=== PATIENT | female | born 1950 | race Two or more races ===

== ENCOUNTER 2018-04-04 14:44 | Inpatient (IN) | payer MEDICARE, OTHER ==
[~2018-04-04] VITALS: Ht 160 cm; Wt 86.2 kg
--- NOTE | 2018-04-04 14:48 | NUR ---
PT BIBRA TO ER BED 11. C/O L HIP AND L KNEE PAIN S/P MECHANICAL SLIP AND FALL 30 MINS PRIOR TO ADMISSION. PT DENIES HEAD TRAUMA. WAS GIVEN MORPHINE AND ZOFRAN ADMITTING COORDINATOR. PLACED ON MONITOR. VSS AWAITING MD PULIDO.
--- NOTE | 2018-04-04 14:49 | NUR ---
DR CARTAGENA AT BEDSIDE FOR EVAL.
--- NOTE | 2018-04-04 16:34 | NUR ---
CALLED [employer] SUPERVISOR WAS PAGED.
[2018-04-04 16:42] LABS: BASOPHILS # (AUTO) 0.1 /CMM (0.0-0.2); BASOPHILS % (AUTO) 0.6 % (0.0-2.0); EOSINOPHILS % (AUTO) 0.7 % (0.0-6.0); HEMATOCRIT 40 % (33-45); HEMOGLOBIN 13.5 g/dL (11.5-14.8); LYMPHOCYTES # (AUTO) 1.7 /CMM (0.8-4.8); LYMPHOCYTES % (AUTO) 15.1 % (20.0-44.0); MEAN CORPUSCULAR HEMOGLOBIN 29 PG (26.0-33.0); MEAN CORPUSCULAR HGB CONC 34 g/dl (31.0-36.0); MEAN CORPUSCULAR VOLUME 87 fL (82-100); MONOCYTES # (AUTO) 0.4 /CMM (0.1-1.30); MONOCYTES % (AUTO) 3.7 % (2.0-12.0); NEUTROPHILS # (AUTO) 9.1 /CMM (1.8-8.9); NEUTROPHILS % (AUTO) 79.9 % (43.0-81.0); PLATELET COUNT (AUTO) 359 /CMM (150-450); RED BLOOD CELL COUNT(AUTO) 4.65 MIL/uL (4.0-5.2); WHITE BLOOD COUNT (AUTO) 11.4 K/uL (4.3-11.0)
[2018-04-04] MEDS ORDERED: IV NS 0.9% 1,000 ML IV PRN (16:43)
--- NOTE | 2018-04-04 16:43 | NUR ---
CALLED [facility], CHART CLERK WAS PAGED.
[2018-04-04 16:51] LABS: CALCIUM, SERUM 9.2 mg/dL (8.5-10.1); CREATININE 0.7 mg/dL (0.6-1.3); POTASSIUM 3.9 mmol/L (3.5-5.1)
[2018-04-04 16:59] LABS: INR 0.9 (0.85-1.15)
[2018-04-04] MEDS ORDERED: ACETAMINOPHEN 325 MG TABLET PO PRN (17:00)
[2018-04-04] MEDS ORDERED: ZOLPIDEM TARTRATE 5 MG TABLET PO PRN (17:00)
[2018-04-04] MEDS ORDERED: Z GUARD REMEDY 2 OZ OINT TP PRN (17:00)
[2018-04-04] MEDS ORDERED: MAGNESIUM HYDROXIDE 30 ML UDC PO PRN (17:00)
[2018-04-04] MEDS ORDERED: ONDANSETRON HCL/PF 4 MG/2 ML VIAL IVP PRN (17:00)
[2018-04-04] MEDS ORDERED: MAG HYDROX/AL HYDROX/SIMETH 30 ML UDC PO PRN (17:00)
[2018-04-04] MEDS ORDERED: ATOR40TA PO (17:15)
[2018-04-04] MEDS ORDERED: METF500T6 PO (17:15)
[2018-04-04] MEDS ORDERED: GEMF600T3 PO (17:15)
[2018-04-04] MEDS ORDERED: LOSA1TAB42 PO (17:15)
[2018-04-04] MEDS ORDERED: RANI300C PO (17:15)
[2018-04-04] MEDS ORDERED: ESCI10TA PO (17:15)
[2018-04-04] MEDS ORDERED: METO-356 PO (17:15)
[2018-04-04] MEDS ORDERED: LEVO88TA5 PO (17:15)
--- NOTE | 2018-04-04 17:22 | NUR ---
REPORT GIVEN TO NANCY MERRITT. PT AWAITING TRANSFER TO FLOOR.
[2018-04-04] MEDS: MORPHINE SULFATE INJ 2 MG/ML DISP.SYRIN IV PRN (18:16)
--- NOTE | 2018-04-04 18:40 | NUR ---
MS RN Notes Received patient form ER via [facility] with the diagnosis S/P fall left hip fracture under the service of Dr. Mckeon. Patient is awake, A/O x4. Persian speaking but can speak/understand basic Turkmen. With patent UV cannula on R hand G#20. Unable to do skin assessment at this time due to patient in severe pain. Patient place on bed comfortably, V/S checked, stable within acceptable range. Started on IVF NS @ 75 ml/hr as ordered. Administered Morphine for pain as ordered. All needs attended and met. Plan of care discussed family at bedside. Kept clean, dry and comfortable. Monitored accordingly. Endorsed to the next shift.
[2018-04-04 19:47] VITALS: BP 112/60
[2018-04-04 20:00] VITALS: BP 112/60
--- NOTE | 2018-04-04 20:38 | NUR ---
2000 RECIEVED ALERT AND ORIENTATED X3 AWARE SHE IS TO BE SCHEDULED FOR SURGERY TO REPAIR HER LEFT HIP TOMORROW. DAUGHTER AT THE BEDSIDE. PEDAL PULESES MARLENE FEET STRONG MOVEMENT PRESENT. AT THIS TIME SHE STATED SHE IS COMFORTABLE . NOTED SHE NODS OFF TO SLEEP. SPEECH CLEAR.
[2018-04-04] MEDS: BLOOD SUGAR DIAGNOSTIC 1 EACH STRIP IN SCH (21:32)
[2018-04-05] VITALS (11 sets, daily range): BP systolic 110–152; BP diastolic 67–85
[2018-04-05] MEDS: BLOOD SUGAR DIAGNOSTIC 1 EACH STRIP IN SCH ×4 (06:20→22:02)
[2018-04-05 06:29] LABS: BASOPHILS % (AUTO) 0.4 % (0.0-2.0); EOSINOPHILS % (AUTO) 2.6 % (0.0-6.0); HEMATOCRIT 37 % (33-45); HEMOGLOBIN 12.8 g/dL (11.5-14.8); LYMPHOCYTES # (AUTO) 1.9 /CMM (0.8-4.8); LYMPHOCYTES % (AUTO) 21.1 % (20.0-44.0); MEAN CORPUSCULAR HEMOGLOBIN 30 PG (26.0-33.0); MEAN CORPUSCULAR HGB CONC 34 g/dl (31.0-36.0); MEAN CORPUSCULAR VOLUME 89 fL (82-100); MONOCYTES # (AUTO) 0.5 /CMM (0.1-1.30); MONOCYTES % (AUTO) 5.6 % (2.0-12.0); NEUTROPHILS # (AUTO) 6.4 /CMM (1.8-8.9); NEUTROPHILS % (AUTO) 70.3 % (43.0-81.0); PLATELET COUNT (AUTO) 294 /CMM (150-450); RDW COEFFICIENT OF VARIATION 12.7 (11.5-15.0); RED BLOOD CELL COUNT(AUTO) 4.22 MIL/uL (4.0-5.2); WHITE BLOOD COUNT (AUTO) 9.1 K/uL (4.3-11.0)
--- NOTE | 2018-04-05 06:47 | NUR ---
ending notes; ASKED X3 IF NEEDED PAIN MEDICATION, STATED IF SHE DIDN'T MOVE IT DIDN'T HURT. DTR AT THE BEDSIDE THROUGH THE NIGHT/ VOIDED X1 ON THE BEDPAN, WILL ASK THE MD FOR A MCDONNELL TODAY..MUCH NEEDED. PPP MARLENE FEET
[2018-04-05 06:50] LABS: CREATININE 0.8 mg/dL (0.6-1.3); MAGNESIUM 1.8 mg/dL (1.8-2.4); PHOSPHORUS 3.7 mg/dL (2.5-4.9); POTASSIUM 3.8 mmol/L (3.5-5.1)
[2018-04-05 07:00] LABS: CALCIUM, SERUM 8.5 mg/dL (8.5-10.1)
[2018-04-05] MEDS: LEVOTHYROXINE SODIUM 88 MCG TABLET PO SCH (07:30)
--- NOTE | 2018-04-05 07:35 | NUR ---
RN OPENING NOTES RECEIVED PT. IN BED A&OX4. BREATHING UNLABORED, AND EVENLY ON ROOM AIR. PT C/O PAIN IN LEFT HIP, PT. WAS OFFERED PAIN MEDICATION. PT.'S DAUGHTER AT BEDSIDE REQUESTED FOR A MCDONNELL CATHETER INSERTION FOR HER MOTHER DUE TO PT. HAVING DIFFICULTY VOIDING. IV FLUIDS ARE RUNNING AT 75 ML/HR. BED IS IN LOWEST, AND LOCKED POSITION. 2 SIDE RAILS UP, AND INSTRUCTED PT. TO USE CALL LIGHT FOR ASSISTANCE.
[2018-04-05] MEDS: MORPHINE SULFATE INJ 2 MG/ML DISP.SYRIN IV PRN (08:15)
[2018-04-05] MEDS: METOPROLOL SUCCINATE 25 MG TAB.SR.24H PO SCH (09:00)
[2018-04-05] MEDS: ESCITALOPRAM OXALATE (10 MG) 10 MG TABLET PO SCH (09:00)
[2018-04-05] MEDS: FAMOTIDINE (20 MG) 20 MG TABLET PO SCH (09:00)
[2018-04-05] MEDS ORDERED: IV D5/ 0.9% NACL 1,000 ML IV PRN (09:26)
[2018-04-05] MEDS ORDERED: METFORMIN 500 MG TABLET PO SCH (09:30)
[2018-04-05] MEDS: METFORMIN 500 MG TABLET PO SCH ×2 (09:30→17:00)
--- NOTE | 2018-04-05 09:52 | NUR ---
MCDONNELL CATHETER WAS INSERTED WITHOUT COMPLICATIONS. PT. TOLERATED PROCEDURE WELL. PT. HAD 600 CC OF CLEAR, AND YELLOW URINE OUTPUT.
[2018-04-05] MEDS: HYDROCHLOROTHIAZIDE 25 MG TABLET PO SCH (10:42)
[2018-04-05] MEDS: LOSARTAN POTASSIUM 50 MG TABLET PO SCH (11:00)
[2018-04-05 13:53] LABS: THYROID STIMULATING HORMONE 1.668 uIU/mL (0.358-3.74)
[2018-04-05 15:47] LABS: BILIRUBIN,URINE NEGATIVE (NEGATIVE); BLOOD, URINE NEGATIVE Ery/uL (NEGATIVE); COLOR,URINE YELLOW (YELLOW); KETONES,URINE NEGATIVE (NEGATIVE); LEUKOCYTE ESTERASE ,URINE NEGATIVE (NEGATIVE); NITRITE, URINE NEGATIVE (NEGATIVE); PROTEIN,URINE NEGATIVE (NEGATIVE); UGLUCOSE NEGATIVE (NEGATIVE); UROBILINOGEN,URINE 0.2 EU/dL (0.2)
[2018-04-05 15:53] LABS: APPEARANCE,URINE CLEAR (CLEAR)
[2018-04-05] MEDS: GEMFIBROZIL 600 MG TABLET PO SCH (17:00)
--- NOTE | 2018-04-05 18:07 | NUR ---
PT. LEFT ROOM FOR LEFT HIP SURGERY.
--- NOTE | 2018-04-05 19:00 | NUR ---
RN CLOSING NOTES ENDORSED TO NURSE PT. LEFT FOR SURGERY. ALL CONSENTS SIGNED AND PLACED IN CHART. PT. HAD MCDONNELL CATHETER WITH >1000 CC OUTPUT OF CLEAR, AND YELLOW URINE. PT. HAD LEFT FOR SURGERY IN STABLE CONDITION.
[2018-04-05] MEDS ORDERED: BUPIVACAINE MPF 0.75% 30 ML VIAL ONE (19:04)
[2018-04-05] MEDS ORDERED: BACITRACIN 50000 UNITS/VIAL ONE (19:04)
[2018-04-05] MEDS ORDERED: HYDROMORPHONE INJ 2 MG/ML DISP.SYRIN ONE ×2 (19:12→20:21)
[2018-04-05] MEDS ORDERED: FENTANYL PF 100MCG/2ML AMPUL ONE (20:21)
[2018-04-05] MEDS: ATORVASTATIN 40 MG TABLET PO SCH (21:22)
[2018-04-05] MEDS ORDERED: IV NS 0.9% 1,000 ML BAG IV PRN (22:00)
[2018-04-05] MEDS ORDERED: IV NS 0.9% 1,000 ML IV PRN (22:30)
[2018-04-06] VITALS (12 sets, daily range): BP systolic 102–174; BP diastolic 50–81
[2018-04-06] MEDS: ANCEF 1 GM/50 ML D5W IV SCH ×6 (00:48→17:08)
[2018-04-06] MEDS: MORPHINE SULFATE INJ 2 MG/ML DISP.SYRIN IV PRN ×2 (02:24→06:23)
[2018-04-06] MEDS: BLOOD SUGAR DIAGNOSTIC 1 EACH STRIP IN SCH ×4 (06:21→21:20)
[2018-04-06 06:23] LABS: BASOPHILS % (AUTO) 0.2 % (0.0-2.0); HEMATOCRIT 35 % (33-45); HEMOGLOBIN 11.9 g/dL (11.5-14.8); LYMPHOCYTES # (AUTO) 0.7 /CMM (0.8-4.8); LYMPHOCYTES % (AUTO) 7.3 % (20.0-44.0); MEAN CORPUSCULAR HEMOGLOBIN 31 PG (26.0-33.0); MEAN CORPUSCULAR HGB CONC 34 g/dl (31.0-36.0); MEAN CORPUSCULAR VOLUME 89 fL (82-100); MONOCYTES # (AUTO) 0.5 /CMM (0.1-1.30); MONOCYTES % (AUTO) 4.7 % (2.0-12.0); NEUTROPHILS # (AUTO) 8.9 /CMM (1.8-8.9); NEUTROPHILS % (AUTO) 87.8 % (43.0-81.0); PLATELET COUNT (AUTO) 289 /CMM (150-450); RDW COEFFICIENT OF VARIATION 12.7 (11.5-15.0); RED BLOOD CELL COUNT(AUTO) 3.88 MIL/uL (4.0-5.2); WHITE BLOOD COUNT (AUTO) 10.1 K/uL (4.3-11.0)
--- NOTE | 2018-04-06 06:31 | NUR ---
ENDING NOTES: COOPERATIVE ABOUT BEING REPOSITIONED THRU THE NIGHT. MEDICATED X2 FOR LEFT HIP PAIN WITH MORPHINE 2 MG AND EFFECTIVE. DAUGHTER AT THE BEDSIDE THRU THE NIGHT. THIS AM MS. DEMIRTCHAIN AWAKE AND ALERT PPP MARLENE FEET AND MOVEMENT PRESENY ANDFEET WARM TO TOUCH BLOOD SUGAR THIS AM 154
[2018-04-06 06:50] LABS: ALBUMIN 3.2 g/dL (3.4-5.0); BILIRUBIN,TOTAL 0.5 mg/dL (0.2-1.0); CALCIUM, SERUM 7.8 mg/dL (8.5-10.1); CREATININE 0.7 mg/dL (0.6-1.3); MAGNESIUM 1.8 mg/dL (1.8-2.4); PHOSPHORUS 3.3 mg/dL (2.5-4.9); POTASSIUM 3.8 mmol/L (3.5-5.1); TOTAL PROTEIN, SERUM 6.8 g/dL (6.4-8.2)
[2018-04-06] MEDS: ESCITALOPRAM OXALATE (10 MG) 10 MG TABLET PO SCH (08:08)
[2018-04-06] MEDS: LEVOTHYROXINE SODIUM 88 MCG TABLET PO SCH (08:09)
[2018-04-06] MEDS: FAMOTIDINE (20 MG) 20 MG TABLET PO SCH (08:09)
[2018-04-06] MEDS: METFORMIN 500 MG TABLET PO SCH ×2 (08:09→17:08)
[2018-04-06] MEDS: METOPROLOL SUCCINATE 25 MG TAB.SR.24H PO SCH (08:14)
[2018-04-06] MEDS: LOSARTAN POTASSIUM 50 MG TABLET PO SCH (08:14)
[2018-04-06] MEDS: HYDROCHLOROTHIAZIDE 25 MG TABLET PO SCH (08:15)
[2018-04-06] MEDS: HYDROCODONE/APAP 5/325MG 1 EACH TABLET PO PRN ×3 (08:17→21:21)
[2018-04-06] MEDS: GEMFIBROZIL 600 MG TABLET PO SCH ×2 (08:21→17:08)
--- NOTE | 2018-04-06 11:17 | NUR ---
MS MERRITT INITIAL NOTES Received patient on semi Bates's position with patent IV infusing well attached to R hand. With complaint of pain 8/10 on the L hip. With patent indwelling FC attached to urine bag with clear yellow urine. On WBAT. Advanced to soft diet, with fair appetite. Kept clean and dry. Medication administered for pain. Will monitor accordingly.
--- NOTE | 2018-04-06 18:48 | NUR ---
MS RN CLOSING NOTES Patient asleep on bed, no discomfort at this time. With patent SL @ R hand. With L hip dressing clean, dry and intact. No new unusualities notes. On soft diet, with good appetite. All due meds given, tolerated well with no ASE noted. Kept clean, dry and comfortable. Endorsed to the next shift.
--- NOTE | 2018-04-06 19:20 | NUR ---
MS RN OPENING NOTE Patient was seen lying in semi-Bates's position in bed AAOx4, breathing on RA with no SOB, and no signs of acute distress. Patient is with left hip fracture s/p surgical repair on 04/05. Dressing covering the incision is clean, dry, and intact. Patient currently reports 4/10 pain and does not need additional medication/measures for pain relief. SL IV in the right hand is intact and patent. Bed is low/locked, two side rails up, and call sloan within reach. Family is at the bedside to assist with translation as needed. Patient has no immediate needs or concerns at this time. Will continue to monitor.
[2018-04-06] MEDS: ATORVASTATIN 40 MG TABLET PO SCH (21:20)
[2018-04-06] MEDS: ENOXAPARIN SODIUM 40 MG/0.4 ML DISP.SYRIN SQ SCH (21:21)
--- NOTE | 2018-04-06 21:30 | NUR ---
MS RN NOTE - Hancock, Maalox Patient requested Hancock for pain relief, reporting 7/10 left hip pain (s/p left hip surgery). PO Hancock 5/325mg was administered as ordered. Patient also reported abdominal gas and bloating and requested medication for relief. 30 ml of Maalox was administered per orders.
[2018-04-07] MEDS: BLOOD SUGAR DIAGNOSTIC 1 EACH STRIP IN SCH ×4 (06:30→21:03)
[2018-04-07] MEDS: LEVOTHYROXINE SODIUM 88 MCG TABLET PO SCH (06:30)
[2018-04-07 07:10] LABS: BASOPHILS % (AUTO) 0.4 % (0.0-2.0); EOSINOPHILS % (AUTO) 2.2 % (0.0-6.0); HEMATOCRIT 35 % (33-45); HEMOGLOBIN 11.7 g/dL (11.5-14.8); LYMPHOCYTES % (AUTO) 22.5 % (20.0-44.0); MEAN CORPUSCULAR HEMOGLOBIN 31 PG (26.0-33.0); MEAN CORPUSCULAR HGB CONC 34 g/dl (31.0-36.0); MEAN CORPUSCULAR VOLUME 89 fL (82-100); MONOCYTES # (AUTO) 0.7 /CMM (0.1-1.30); MONOCYTES % (AUTO) 7.4 % (2.0-12.0); NEUTROPHILS # (AUTO) 6.1 /CMM (1.8-8.9); NEUTROPHILS % (AUTO) 67.5 % (43.0-81.0); PLATELET COUNT (AUTO) 289 /CMM (150-450); RDW COEFFICIENT OF VARIATION 12.8 (11.5-15.0); RED BLOOD CELL COUNT(AUTO) 3.85 MIL/uL (4.0-5.2)
--- NOTE | 2018-04-07 07:44 | NUR ---
MS RN CLOSING NOTE Patient was seen lying in bed AAOx4, breathing on RA with no SOB, and no signs of acute distress. Dressing covering left hip incision remains clean, dry, and intact. Patient slept well overnight with no complications and remains in stable condition. Patient reports pain at 3/10. All needs addressed this shift. Bed is low/locked with call in reach. Patient care endorsed to day shift nurse.
[2018-04-07 07:46] LABS: CALCIUM, SERUM 8.4 mg/dL (8.5-10.1); CREATININE 0.7 mg/dL (0.6-1.3); PHOSPHORUS 2.8 mg/dL (2.5-4.9); POTASSIUM 3.6 mmol/L (3.5-5.1)
--- NOTE | 2018-04-07 07:48 | NUR ---
MS RN OPENING NOTE RECEIVED PATIENT IN BED, SLEEPING, EASILY AROUSED WITH VERBAL STIMULI, ORIENTED X4. ON ROOM AIR, TOLERATING WELL. IN NO APPARENT DISTRESS OR DISCOMFORT AT THIS TIME. RESPIRATIONS EVEN AND UNLABORED. REPORTS PAIN AT TOLERABLE LEVEL FOR NOW DOES NOT WANT PAIN MEDICATION. DENIES SOB. PATIENT IS ABLE TO COMMUNICATE NEEDS. PATIENT WITH MCDONNELL CATH IN PLACE, DRAINING CLEAR YELLOW URINE. RIGHT HAND 20G IVC, SL. PATENT AND INTACT. SURGICAL DRESSING INTACT. ALL NEEDS ATTENDED, KEPT CLEAN AND COMFORTABLE. SAFETY MEASURES IN PLACE, FAMILY AT BEDSIDE, BED IN LOW LOCKED POSITION, SIDE RAILS UP X2, CALL LIGHT WITHIN EASY REACH. WILL CONTINUE TO MONITOR.
[2018-04-07 08:00] VITALS: BP 124/58
[2018-04-07] MEDS: LOSARTAN POTASSIUM 50 MG TABLET PO SCH (09:00)
[2018-04-07] MEDS: HYDROCHLOROTHIAZIDE 25 MG TABLET PO SCH (09:16)
[2018-04-07] MEDS: GEMFIBROZIL 600 MG TABLET PO SCH ×2 (09:17→16:31)
[2018-04-07] MEDS: ESCITALOPRAM OXALATE (10 MG) 10 MG TABLET PO SCH (09:17)
[2018-04-07] MEDS: METFORMIN 500 MG TABLET PO SCH ×2 (09:18→16:31)
[2018-04-07] MEDS: HYDROCODONE/APAP 5/325MG 1 EACH TABLET PO PRN ×2 (09:18→16:01)
[2018-04-07] MEDS: METOPROLOL SUCCINATE 25 MG TAB.SR.24H PO SCH (09:21)
--- NOTE | 2018-04-07 09:30 | NUR ---
AM BP MEDICATION COZAAR WAS HELD PATIENT'S BP WAS WNL AND SHE WAS ALREADY GETTING TWO OTHER BP MEDICATIONS. PATIENT NOTIFIED AND AGREED TO HOLD
[2018-04-07] MEDS: FAMOTIDINE (20 MG) 20 MG TABLET PO SCH (09:32)
--- NOTE | 2018-04-07 11:30 | NUR ---
RECEIVED REPORT FROM PHYSICAL THERAPIST THAT PATIENT WAS NOT ABLE TO WALK. SHE ONLY SAT ON THE EDGE OF THE BED. AND STOOD UP BUT DID NOT WANT TO WALK DUE TO PAIN. PAIN MEDICATION WAS ADMINISTERED ABOUT AN HOUR PRIOR TO THERAPY AND PATIENT REPORTED IT WAS EFFECTIVE AT THE TIME OF REASSESSMENT. WILL CONTINUE TO MONITOR AND REINFORCE EDUCATION.
--- NOTE | 2018-04-07 13:00 | NUR ---
PATIENT REPORTS HAVING POOR APPETITE AND REFUSES TO EAT ANYTHING. ENCOURAGED TO EAT BY THE NURSE AND THE FAMILY. WILL CONTINUE TO MONITOR.
--- NOTE | 2018-04-07 15:00 | NUR ---
UNABLE TO CHANGE PATIENT'S BEDSHEETS DUE TO PATIENT NOT BEING ABLE TO TURN AND MOVE AROUND. STATES SHE HAS EXCRUCIATING PAIN WITH MOVEMENT. SUGGESTED TO GIVE HER PAIN MEDICATION TO CONTROLL THE PAIN AND REATTEMPT LATER. PATIENT AGREED, FAMILY AGREED.
[2018-04-07 16:00] VITALS: BP 123/70
--- NOTE | 2018-04-07 18:00 | NUR ---
PATIENT IS NON COMPLIANT WITH TREATMENT PLAN. DOES NOT WANT TO EAT DUE TO POOR APPETITE, OR MOVE AROUND DUE TO PAIN. OFFERED TO GIVE PAIN MEDICATION. PATIENT STATED SHE DOES NOT WANT TO TAKE PAIN MEDICATION SHE IS NOT IN PLAIN WHEN LAYING STILL. REINFORCED EDUCATION REGARDING THE IMPORTANCE OF AMBULATING AND PHYSICAL ACTIVITY POST SURGERY. ENCOURAGED TO ALLOW TO CONTROL THE PAIN IN ORDER FOR HER TO BE ABLE TO AMBULATE. RISKS AND BENEFITS WAS EXPLAINED TO THE PATIENT. WILL FOLLOW UP AT A LATER TIME.
--- NOTE | 2018-04-07 19:00 | NUR ---
MS RN OPENING NOTE RECEIVE PATIENT AWAKE IN BED, A/O X 4, NO SOB OR DISTRESS NOTED, CALL LIGHT WITHIN REACH. SAFETY MEASURES IMPLEMENTED. WILL CONTINUE TO MONITOR THROUGHOUT SHIFT.
--- NOTE | 2018-04-07 19:25 | NUR ---
MS RN CLOSING NOTE PATIENT IN BED, ALERT ORIENTED X4. ON ROOM AIR, TOLERATING WELL. IN NO APPARENT DISTRESS OR DISCOMFORT AT THIS TIME, RESPIRATIONS EVEN AND UNLABORED. REPORTS PAIN AT TOLERABLE LEVEL, REFUSES PAIN MEDICATION DENIES SOB. PATIENT IS ABLE TO COMMUNICATE NEEDS. PATIENT WITH MCDONNELL CATH IN PLACE, DRAINING CLEAR RACHEL COLOR URINE. RIGHT HAND 20G IVC, SL. PATENT AND INTACT. SURGICAL DRESSING INTACT. ALL NEEDS ATTENDED, KEPT CLEAN AND COMFORTABLE. SAFETY MEASURES IN PLACE, FAMILY AT BEDSIDE, BED IN LOW LOCKED POSITION, SIDE RAILS UP X2, CALL LIGHT WITHIN EASY REACH. WILL ENDORSE TO PM NURSE FOR EUNICE.
[2018-04-07 20:00] VITALS: BP 134/66
[2018-04-07] MEDS: ATORVASTATIN 40 MG TABLET PO SCH (20:48)
[2018-04-07] MEDS: ENOXAPARIN SODIUM 40 MG/0.4 ML DISP.SYRIN SQ SCH (20:48)
[2018-04-07] MEDS: MORPHINE SULFATE INJ 2 MG/ML DISP.SYRIN IV PRN (20:49)
[2018-04-08] MEDS: BLOOD SUGAR DIAGNOSTIC 1 EACH STRIP IN SCH ×3 (06:00→16:11)
--- NOTE | 2018-04-08 06:17 | NUR ---
MS RN CLOSING NOTES PT COMFORTABLY ASLEEP AND EASILY AWAKEN, STABLE CONDITION. RESPIRATION EVEN AND UNLABORED. 02 SAT 98%R.A, KEPT CLEAN AND DRY AND COMFORTABLE, ALL NURSING CARE RENDERED. NEEDS ATTENDED AND ANTICIPATED,NOT IN DISTRESS, NO FACIAL GRIMACING NOTED. ON LOW BED AT ALL TIMES TO ENSURE SAFETY. SAFE HAZARD FREE ENVIRONMENT PROVIDED. CALL LIGHT WITHIN EASY TO REACH. WILL ENDORSE NEXT SHIFT CONTINUITY OF CARE.
[2018-04-08 07:31] LABS: CALCIUM, SERUM 8.4 mg/dL (8.5-10.1); CREATININE 0.6 mg/dL (0.6-1.3); MAGNESIUM 1.9 mg/dL (1.8-2.4); POTASSIUM 3.4 mmol/L (3.5-5.1)
[2018-04-08 08:00] VITALS: BP 141/77
--- NOTE | 2018-04-08 08:00 | NUR ---
RN NOTES RECEIVED PATIENT IN THE BED A/O X3, [place] SPEAKER FEMALE, HAS NO ACUTE RESPIRATORY DISTRESS, REFUSED PAIN AT THIS TIME, ONLY PAINFUL WHEN MOVING LEFT LEG, BUT TOLERABLE, REFUSED PAIN MEDICATION THIS TIME. PATIENT HAS IV/ACCESS ON RIGHT HAND INTACT, F/ C DRAIN LIGHT YELLOW OUTPUT, ASSIST TURN AND REPOSTION Q 2 HR. SCHEDULED MEDICATION ADMINISTERED, V/S STABLE. ENCOURAGED TO INCREASE FLUID INTAKE, DAUGHTER NEXT TO THE BED . CALL LIGHT WITHIN TO REACH, SAFETY PRECAUTION MAINTAINED ALL THE TIME.
[2018-04-08] MEDS: METFORMIN 500 MG TABLET PO SCH ×2 (08:13→16:09)
[2018-04-08] MEDS: LEVOTHYROXINE SODIUM 88 MCG TABLET PO SCH (08:13)
[2018-04-08] MEDS: FAMOTIDINE (20 MG) 20 MG TABLET PO SCH (08:13)
[2018-04-08] MEDS: ESCITALOPRAM OXALATE (10 MG) 10 MG TABLET PO SCH ×2 (08:16→08:27)
[2018-04-08] MEDS: LOSARTAN POTASSIUM 50 MG TABLET PO SCH (08:16)
[2018-04-08] MEDS: METOPROLOL SUCCINATE 25 MG TAB.SR.24H PO SCH (08:17)
[2018-04-08] MEDS: HYDROCHLOROTHIAZIDE 25 MG TABLET PO SCH (08:18)
[2018-04-08] MEDS: ENOXAPARIN SODIUM 40 MG/0.4 ML DISP.SYRIN SQ SCH (08:24)
[2018-04-08] MEDS: GEMFIBROZIL 600 MG TABLET PO SCH ×2 (08:33→16:11)
[2018-04-08] MEDS ORDERED: ENOX40DI SQ (08:58)
[2018-04-08] MEDS ORDERED: MAGN400O6 PO (08:58)
[2018-04-08] MEDS ORDERED: HYDR-3972 PO (08:58)
[2018-04-08] MEDS ORDERED: MORPHINE SULFATE INJ 2 MG/ML DISP.SYRIN IV PRN (09:00)
[2018-04-08] MEDS ORDERED: HYDROCODONE/APAP 10/325MG 1 EA TABLET PO PRN (09:00)
[2018-04-08] MEDS ORDERED: ENOXAPARIN SODIUM 40 MG/0.4 ML DISP.SYRIN SQ SCH (09:30)
[2018-04-08] MEDS ORDERED: POTASSIUM CHLORIDE 20 MEQ TAB.PRT.SR PO ONE (09:30)
--- NOTE | 2018-04-08 10:18 | NUR ---
RN NOTES ADMINISTERED MORPHINE SULFATE 2 MG/ML IV PUSH FOR LEFT HIP PAIN 03/15 PER PATIENT REQUEST. V/S TAKEN BP-141/77, P-81, CONTINUED MONITORING.
--- NOTE | 2018-04-08 11:00 | NUR ---
RN NOTES REMOVED F/C PER DR ZEE ORDER, ENCOURAGED PATIENT IN INCREASE FLUID INTAKE, CONTINUED MONITORING.
--- NOTE | 2018-04-08 11:38 | NUR ---
RN NOTES PATIENT GOING TO D/C ACUTE REHAB. MEDICATION WERE ADMINISTERED FOR PAIN EFFECTIVE, PATIENT WITH PT AT THIS TIME.
[2018-04-08 16:00] VITALS: BP 136/71
--- NOTE | 2018-04-08 17:32 | NUR ---
RN NOTES ADMINISTERED NARCO 10/325 MG PO PRN FOR LEFT HIP PAIN 03/15 PER PATIENT REQUEST, V/S TAKEN BP-136/71, P-95, ENCOURAGED TO INCREASE FLUID INTAKE. CONTINUED MONITORING.
--- NOTE | 2018-04-08 18:34 | NUR ---
DISCHARGE NOTES PATIENT DISCHARGE AT THIS TIME GOING [facility]. PATIENT A/O X4, MEDICATION WERE ADMINISTERED FOR PAIN EFFECTIVE, V/S STABLE. MED RECONCILIATION AND DISCHARGE ORDER REVIEWED AND EXPLAINED TO PATIENT AND DAUGHTER. REPORT GIVEN ARU SHAINA SALINAS. RN VERBALIZED UNDERSTANDING. BELONGING WITH THE PATIENT. PATIENT ADVERTISING ACCOUNT EXECUTIVE BY AMBULANCE. PATIENT WILL FOLLOW ARU SEAT COVER CUTTER.
== END 2018-04-08 18:28 | DRG 482 ==
LOC: ER 14:45 → TELE 17:03 → MED 18:28
PROVIDERS: ADMIT Internal Medicine; ATTEND Internal Medicine
PROC: 0QS706Z Reposition Left Upper Femur with Intramedullary Internal Fixation Device, Open Approach (ICD-10-PCS; principal; 2018-04-05 18:20)
DX: S72.145A Nondisplaced intertrochanteric fracture of left femur, initial encounter for closed fracture (principal); W01.0XXA Fall on same level from slipping, tripping and stumbling without subsequent striking against object, initial encounter; Y92.000 Kitchen of unspecified non-institutional (private) residence as the place of occurrence of the external cause; D72.829 Elevated white blood cell count, unspecified; F32.9 Major depressive disorder, single episode, unspecified; E03.9 Hypothyroidism, unspecified; E11.9 Type 2 diabetes mellitus without complications; K21.9 Gastro-esophageal reflux disease without esophagitis; I10 Essential (primary) hypertension; E78.5 Hyperlipidemia, unspecified; Z79.84 Long term (current) use of oral hypoglycemic drugs; Z87.891 Personal history of nicotine dependence
CPT/HCPCS: 36415; 71045-TC; 73502; 73560-TC; 75625-TC; 80048-TC; 80053-TC; 80061-TC; 81000-TC; 82306; 82962-TC; 83735-TC; 84100-TC; 84439-TC; 84443-TC; 85025-TC; 85730-TC; 86850-TC; 87081-TC; 93307-TC; 97110-TC; 97116-TC; 97530-TC; A4606; A6209; A6402; C1713; J0690; J1170; J1650; J2270; J3010; J3490; J7030; J7042; J7060; Z7610